=== PATIENT | male | born 1945 | race Caucasian/White ===

== ENCOUNTER 2016-03-20 12:49 | Emergency (ER) | payer MEDICARE, OTHER ==
[2016-03-20] MEDS ORDERED: SODIUM CHLORIDE 0.9% 500 ML ONE (13:20)
[2016-03-20 13:28] LABS: ABSOLUTE NEUTROPHIL COUNT 5.2 K/mm3 (1.8-7.7); BASO % 0.4 % (0.2-1.0); EOS # 0.1 (0.0-0.5); EOS % 0.8 % (0.9-2.9); HEMATOCRIT 39.6 % (32.0-52.0); HEMOGLOBIN 12.9 gm/l (14.0-18.0); IMM NEUT% 0.3 % (0-1); LYMPH # 1.2 (1.0-4.8); LYMPH % 16.6 % (15-45); MEAN CELL VOLUME 91.9 fl (80.0-94.0); MEAN CORPUSCULAR HEMOGLOBIN 29.9 pg (27.0-31.0); MEAN CORPUSCULAR HGB CONC 32.6 g/dl (33.0-37.0); MEAN PLATELET VOLUME 10.6 fl (7.4-10.4); MONO # 0.6 (0.0-0.8); MONO % 8.8 % (4-12); NEUT % 73.1 % (43-75); PLATELET COUNT 255 K/mm3 (130-400); RED CELL DISTRIBUTION WIDTH 12.3 % (11.5-14.5)
[2016-03-20 13:38] LABS: ALB/GLOB RATIO 1.3 (>1.0); ALBUMIN 3.9 gm/dL (3.5-5.7); CALCIUM 9.2 mg/dL (8.6-10.3)
[2016-03-20 14:07] LABS: SPECIFIC GRAVITY 1.015 (1.001-1.030); URINE BILIRUBIN NEGATIVE (NEGATIVE); URINE BLOOD TRACE (NEGATIVE); URINE GLUCOSE (UA) NEGATIVE (NEGATIVE); URINE LEUKOCYTE ESTERASE 1+ (NEGATIVE); URINE NITRITE NEGATIVE (NEGATIVE); URINE PROTEIN NEGATIVE (NEGATIVE); URINE UROBILINOGEN NORMAL (0-1 mg/dl)
[2016-03-20 14:22] LABS: URINE APPEARANCE HAZY; URINE COLOR YELLOW
[2016-03-20 14:35] LABS: URINE RBC 0-1 /hpf
[2016-03-20 14:36] LABS: URINE BACTERIA 2+; URINE EPITHELIAL CELLS 0-1 /hpf; URINE WBC 20-30 /hpf
== END 2016-03-20 14:46 | disposition home or self-care (01) ==
LOC: ED 12:49
DX: I95.1 Orthostatic hypotension (principal); R53.1 Weakness; G20 Parkinson's disease
CPT/HCPCS: 85025; 82550; 87086; 80053; 87186; 84484; 81001; 87077; 99284; 96360; 93005; 99283; J7040

== ENCOUNTER 2016-03-31 05:09 | Inpatient (IN) | payer MEDICARE, OTHER ==
[2016-03-31] MEDS ORDERED: FENTANYL 100 MCG/2 ML VIAL ONE (05:29)
[2016-03-31 06:04] LABS: ABSOLUTE NEUTROPHIL COUNT 9.1 K/mm3 (1.8-7.7); BASO % 0.2 % (0.2-1.0); EOS % 0.4 % (0.9-2.9); HEMATOCRIT 35.2 % (32.0-52.0); HEMOGLOBIN 11.6 gm/l (14.0-18.0); IMM NEUT% 0.4 % (0-1); LYMPH # 1.2 (1.0-4.8); LYMPH % 10.9 % (15-45); MEAN CELL VOLUME 90.7 fl (80.0-94.0); MEAN CORPUSCULAR HEMOGLOBIN 29.9 pg (27.0-31.0); MEAN PLATELET VOLUME 10.9 fl (7.4-10.4); MONO # 0.8 (0.0-0.8); MONO % 7.1 % (4-12); PLATELET COUNT 207 K/mm3 (130-400); RED CELL DISTRIBUTION WIDTH 12.3 % (11.5-14.5)
[2016-03-31 06:19] LABS: ALB/GLOB RATIO 1.3 (>1.0); ALBUMIN 3.4 gm/dL (3.5-5.7); BLOOD UREA NITROGEN 20 mg/dL (7-25); BUN/CREATININE RATIO 22 (6-20); CALCIUM 8.7 mg/dL (8.6-10.3); GLOMERULAR FILTRATION RATE 83 mL/min (60-75); MAGNESIUM 1.8 mg/dL (1.9-2.7)
[2016-03-31] MEDS ORDERED: HYDROMORPHONE HCL 0.5 MG/0.5 ML SYRINGE ONE ×2 (06:20→07:16)
[2016-03-31 06:25] LABS: ALT/SGPT < 5 U/L (7-52)
[2016-03-31] MEDS ORDERED: LIDOCAINE 2% UROJECT 10 ML ONE (07:17)
[2016-03-31] MEDS ORDERED: BLISTEX LIPSTICK 1 EACH TP PRN (08:16)
[2016-03-31] MEDS ORDERED: MENTHOL/CETYLPYRD 1 EACH LOZENGE PO PRN (08:16)
[2016-03-31] MEDS ORDERED: BISACODYL 5 MG TABLET.EC PO PRN (08:16)
[2016-03-31] MEDS ORDERED: MAGNESIUM HYDROXIDE 30 ML UDCUP PO PRN (08:16)
[2016-03-31] MEDS ORDERED: BISACODYL 10 MG SUP PR PRN (08:16)
[2016-03-31] MEDS ORDERED: ACETAMINOPHEN 325 MG TABLET PO PRN (08:16)
[2016-03-31] MEDS ORDERED: SODIUM CHLORIDE 0.9% 100 ML IV PRN (08:16)
[2016-03-31 08:20] VITALS: BMI 23.1
[2016-03-31] MEDS ORDERED: ONDANSETRON 4 MG/2ML 2 ML VIAL IV PRN (08:20)
[2016-03-31] MEDS ORDERED: PUMP TUBING ONE (08:39)
[2016-03-31] MEDS: LACTATED RINGERS 1,000 ML IV SCH ×2 (08:41→18:08)
[2016-03-31] MEDS: CIPROFLOXACIN IV 400 MG 400 MG in Premix (D5W) 200 ml 1 EACH IV SCH ×2 (08:57→20:45)
[2016-03-31] MEDS: HYDROMORPHONE HCL 2 MG/ML SYRINGE IV PRN ×3 (09:07→16:57)
[2016-03-31] MEDS ORDERED: MAGNESIUM SULFATE 2 G/50 ML 2 G in Premix (Water) 50 ml 1 EACH IV ONE (10:30)
[2016-03-31] MEDS: DOCUSATE SODIUM 100 MG CAPSULE PO SCH ×2 (11:05→21:36)
--- NOTE | 2016-03-31 11:12 | CONS ---
ANA MARIE [id number] DATE OF : 1945 DATE OF SERVICE: 03/31/2016 HISTORY OF PRESENT ILLNESS: The patient is a 71-year-old gentleman who presented to the emergency department this morning after a fall onto his left hip. He had pain and difficulty with weightbearing. He was brought to the emergency department. X-rays were obtained of the left hip which were concerning for intratrochanteric fracture. He was admitted by the Hospitalist and orthopedics was consulted. On evaluation, today he complains of pain that localizes to his left groin crease and bilateral side of his left hip. He has had previous falls on this side with similar complaints evaluated a less than a year ago. He states that he was not having any antecedent hip pain. He is a community ambulator with occasional use of assisted devices secondary to his Parkinson disease. He is not certain if he had pain in the hip before he fell, and he is not certain which side he landed on. He just remembers being at the sink to get a glass of water early this morning and then finding himself on the floor with pain in his left hip. He has no other extremity complaints at this time. He does have the significant motion restriction secondary to his Parkinson. He is currently comfortable. PAST MEDICAL HISTORY: Per the Hospitalist service, most notably: 1. Parkinson disease. 2. Major depression. 3. Hearing loss. 4. Chronic constipation. 5. Some degree of congestive heart failure. 6. Anxiety adjustment disorder. 7. Some mild anemia. 8. Panic disorder. 9. Agoraphobia. 10. Abdominal aortic aneurysm. PAST SURGICAL HISTORY: Includes: 1. Appendectomy. 2. He has had no previous procedures on this joint. ALLERGIES: PER THE HOSPITALIST HISTORY AND PHYSICAL: CURRENT MEDICATIONS: Per the Hospitalist history and physical. PHYSICAL EXAM: GENERAL: This is a well-developed, well-nourished male in no acute distress. He is awake, alert, and conversant throughout the encounter. He is seen lying in bed on the [facility]. HEENT: Normocephalic and atraumatic. His extraocular movements appear to be intact. NECK: Soft and supple. LUNGS: His lungs appear clear. HEART: His heart has a regular rate and rhythm. ABDOMEN: Soft. FOCUSED MUSCULOSKELETAL EXAM OF HIS LEFT LOWER EXTREMITY: He has pain with any motion, but this true of both lower extremities. He has tenderness on palpation of the lateral side of his left hip in the region of the greater trochanter, as well as some mild tenderness in his groin crease and back around to his buttocks. He has pain with any attempt at log roll. His motion is very limited secondary to pain. He has intact sensation, and well perfused foot. He 5/5 strength in ankle, dorsiflexion, and plantar flexion. He has no open injuries. DIAGNOSTIC IMAGING: A review of his x-rays from this morning show a various deformity at the proximal femur, but here appears to be significant re-mottling and it is difficult to determine acuity of this deformity. He has essentially almost a Baird's crook type proximal femoral geometry. There is not a clear displaced fracture that I can visualize on these images. review of previous images from a year ago shows significantly different geometry without the same various deformity, and without significant bony callous that is currently present in the piriformis fossa. ASSESSMENT: A 71-year-old male with a fall presumably onto his left side, pain in his left hip and a change in his proximal femoral geometry compared to previous images which is suspicious for femoral neck versus introchanteric fracture of a non-acuity. PLAN: Will be for a CT scan to further evaluate the geometry of his proximal femur and determine whether there is an acute fracture, or a partially re-mottled fracture. We will withhold plans for surgery until we have a better idea of what is going on here. In the meantime, we will manage his pain control, and we will keep him non-weightbearing. I will allow him to eat today and if he does indeed have a displaced fracture that requires surgery, it probably will be sliding hip screw which we plan to do sometime tomorrow. DANIELLA/noris
--- NOTE | 2016-03-31 11:20 | RAD ---
HIP - LEFT 2 VW + AP PELVIS COMPARISON: Pelvis and left hip, 04/21/2015 HISTORY: The patient fell and now has left hip pain. FINDINGS: Views: AP pelvis. Left hip AP and frog-leg. Bones: Mildly angulated intertrochanteric fracture of the left femur. In the right iliac bone, 13.6 mm sclerotic lesion, unchanged since 04/21/2015 Joints: Degenerative changes in left hip. Soft tissues: Normal. IMPRESSION: 1. Mildly angulated intertrochanteric fracture left femur. 2. No change in osteoarthritis of the left hip. 3. No change in bone island of the right iliac bone.
--- NOTE | 2016-03-31 11:21 | RAD ---
CHEST-AP BEDSIDE COMPARISON: Chest 2 views, 11/24/2015 HISTORY: Ground-level fall. Left hip pain. Left hip fracture. Preop chest x-ray. FINDINGS: Views: Frontal chest. Lungs: Normal. Heart and vessels: Normal Trachea and bronchi: Normal Mediastinum and lavelle: Normal Costophrenic sulci: Normal Chest wall and bones: Normal Upper abdomen: Normal. IMPRESSION: Negative one view chest.
--- NOTE | 2016-03-31 11:24 | CT ---
PELVIS W/O CON COMPARISON: Pelvis and left hip radiographs, 03/31/2016 HISTORY: Preoperative evaluation. Intertrochanteric fracture of the left femur. Technique: Using a [employer] Aquilion [address] scanner, images were obtained from the iliac crests to the floor the pelvis. No intravenous contrast. An automated dose reduction technique was used to minimize patient radiation dose. Dose: CTDIvol (mGy): 6.90 DLP(mGycm): 299.30 FINDINGS: Pelvic viscera: Atherosclerosis of the abdominal aorta and the iliac arteries. Mora catheter in the bladder. No hematoma. Abdominal wall and supporting musculature: Normal Bones: Mildly medially impacted intertrochanteric fracture of the left femur. Bone island of the right ilium. Bone island of the left ilium near the sacroiliac joint. Joints: Osteoarthritis of the left hip. Normal symphysis pubis. Normal sacroiliac joints. IMPRESSION: 1. Mildly medially impacted intertrochanteric fracture of the left femur, without hematoma.
[2016-03-31] MEDS: DULOXETINE HCL 30 MG CAPSULE.DR PO SCH (12:33)
[2016-03-31] MEDS: CARBIDOPA/LEVODOPA 25/100 1 EACH TABLET PO SCH ×3 (12:34→18:08)
[2016-03-31] MEDS: FAMOTIDINE 20 MG TABLET PO SCH ×2 (12:34→20:39)
[2016-03-31] MEDS: POLYETHYLENE GLYCOL 3350 17 G POWD.SUSP PO SCH ×2 (12:34→21:36)
[2016-03-31] MEDS: ENTACAPONE 200 MG TABLET PO SCH ×4 (13:40→20:40)
[2016-03-31] MEDS: MIDODRINE HCL 5 MG TABLET PO SCH (16:57)
--- NOTE | 2016-03-31 17:02 | HP ---
ANA MARIE [id number] DATE OF ADMISSION: 03/31/2016 CHIEF COMPLAINT: Left hip pain. HISTORY OF PRESENT ILLNESS: Patient is a 71-year-old male with a patient medical history significant for advanced Parkinson disease brought to the [facility] Emergency Department after a fall which occurred at home at ground level. Patient reports he was getting up to get a glass of water and fell, and was unable to get up on his own. He was on the floor for about 2 hours before he was able to get attention, and assistance. He was brought to the [facility] Emergency Department for further evaluation where he was found to have an intratrochanteric impacted hip fracture. He was referred to the Hospitalist service for admission. Dr. Mckeon with the orthopedic service was consulted. 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 REVIEW OF SYSTEMS: Negative for any recent fevers, or chills. He denies any recent upper respiratory symptoms, cough, dyspnea, wheezing, chest pain, shortness of breath, or palpitations. He denies nausea, vomiting, or abdominal pain. He has had some diarrhea since he started on the antibiotic. He normally has chronic constipation. He complains of left hip pain, but denies any other arthralgias. He denies headaches, fainting, blackouts, or seizures. He has had no urinary complaints. He is not sure exactly how he felt. PAST MEDICAL HISTORY: Is significant for: 1. Fairly advanced Parkinson disease followed by Dr. Colten Ramirez at the [facility]. He has recently been having some medication adjustment for orthostatic hypotension felt to be a side effect of his medications. Treated with Midodrine. 2. He has a history of chronic depression with anxiety. 3. He reports he believes he was hospitalized about 8 months ago up in [place], but I do not have any record of this, and he does not recall what that may have been for. 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. 4. He has a history of benign prostatic hypertrophy followed by Dr. Shabbir Miller. 5. He denies any history of coronary artery disease, or any chronic lung disease. 6. He has had a small aneurysm of the abdominal aorta measuring 3 cm which has been stable, last checked in October of 2015. 7. He may be recalling hospitalization here in our hospital in November of 2015 where he was monitored overnight for weakness. His problem lists a history of myocardial infarction and congestive heart failure; however, review of his records in [employer] including his old medical records and in a discussion with the patient there is no evidence of this, and it is unclear where this information came from, or if it is true. The patient seemed like a reliable historian. He shows no electrocardiogram changes that would indicate prior coronary artery disease. PAST SURGICAL HISTORY: Is significant for a prior: 1. Colonoscopy. 2. Appendectomy. 3. History of gallstones. 4. Upper endoscopy of 2015 showing mild gastritis otherwise normal findings. 5. Colonoscopy in January of 2015 with a sessile polyp removed by snare cautery. ALLERGIES: DOCUMENTED TO LINZESS WHICH CAUSED CHEST PAIN. CURRENT MEDICATIONS: As obtained from his electronic health record in the clinic shows: 1. Flomax 0.4 mg by mouth at bedtime. 2. Miralax normally is taking 17 g twice daily. He is holding the medicine due to his antibiotic associated diarrhea. 3. Midodrine 5 mg twice daily at 9 a.m. and 3 p.m. 4. Pepcid 40 mg twice daily. 5. Comtan 5 times a day at 0600, 0900, 1200, 1500, 1800, and 2100. 6. Sinemet 25/100 at 0600, 0900, 1200, 1500, and 1800. He takes 25/200 at bedtime. 7. Klonopin 0.25 mg twice daily as needed for anxiety. 8. Colace has been taken in the past, but is no longer being taken by the patient. 9. Cymbalta 30 mg daily. FAMILY HISTORY: Family history is significant for a great-grandmother with Parkinson disease on his father's side. He has a sister with breast cancer. SOCIAL HISTORY: He has about a 20-pack year history of smoking. He quit 10 years ago. He rarely drinks alcohol. He is . He has no children. His primary care provider is Tyrone Knapp family nurse practitioner. PHYSICAL EXAMINATION: VITAL SIGNS: Temperature is 97.7. Pulse is 88. Blood pressure is 137/84. Respirations are 18. Oxygen saturation is 94% on room air. Body mass index is 23.2. Weight is 75.4 kilograms. GENERAL: This is a well-developed, well-nourished male in no acute distress. HEENT: Exam is unremarkable. NECK: Supple without lymphadenopathy, or thyromegaly. CHEST: Lungs are clear to auscultation bilaterally. CARDIOVASCULAR: Exam reveals a regular rate and rhythm without a murmur. ABDOMEN: Soft, nontender, nondistended with positive bowel sounds. GENITOURINARY: Exam shows a urethral catheter in place, no lesions. EXTREMITIES: Lower extremities shows some shortening of the left leg. No peripheral edema. Dorsalis pedis pulses are 2+ in both feet. SKIN: Warm, dry and intact. DIAGNOSTIC IMAGING: X-ray shows a possible intratrochanteric impacted fracture of the left femur. CT is planned to further evaluate this. Chest x-ray shows a hypoventilatory exam, but no acute abnormalities. LABORATORY STUDIES: CBC shows a white count 11.2, hemoglobin 11.6, and platelet count of 207,000. Chemistry profile shows sodium 138, potassium 3.3, carbon dioxide of 27, BUN 20, creatinine 0.9, and glucose 110. Liver function tests are normal. Magnesium is slightly low at 1.8. Troponin is less than 0.01. A 12-lead electrocardiogram shows sinus rhythm nonspecific T-wave abnormality. ASSESSMENT AND PLAN: Patient has a possible intratrochanteric left femur fracture with left hip pain. He has Parkinson disease chronic and severe. History of orthostatic hypotension secondary to his Parkinson medications treated with midodrine, some chronic depression with anxiety stable on medications. He was admitted to the medical surgical unit. I am going to make him nothing by mouth. He will be given hydration with lactated ringers. For pain, he will get Dilaudid and Zofran as needed for nausea. We will review his films and discuss his plan of care with Dr. Domenico Mckeon the orthopedic surgeon. Further treatment and recommendations will depend on his hospital course. Venous thrombosis risk is moderate, but due to plans for upcoming surgery mechanical measures will be used for venous thromboembolism prophylaxis. Job #: [id number] JESSICA/noris
[2016-03-31] MEDS ORDERED: ENTACAPONE 200 MG TABLET PO SCH (18:00)
[2016-03-31] MEDS: LEVODOPA PO SCH (20:39)
[2016-03-31] MEDS: TAMSULOSIN HCL 0.4 MG CAPSULE.DR PO SCH (20:39)
[2016-03-31] MEDS: CARBIDOPA PO SCH (20:39)
[2016-03-31] MEDS: HYDROMORPHONE HCL 1 MG/ML SYRINGE IV PRN (20:44)
[2016-04-01] MEDS: LACTATED RINGERS 1,000 ML IV SCH ×3 (02:00→17:46)
[2016-04-01] MEDS: HYDROMORPHONE HCL 1 MG/ML SYRINGE IV PRN ×5 (02:00→13:20)
[2016-04-01] MEDS: CARBIDOPA/LEVODOPA 25/100 1 EACH TABLET PO SCH ×5 (05:47→18:04)
[2016-04-01] MEDS: ENTACAPONE 200 MG TABLET PO SCH ×6 (05:47→21:34)
[2016-04-01 06:16] LABS: ABSOLUTE NEUTROPHIL COUNT 4.1 K/mm3 (1.8-7.7); BASO % 0.3 % (0.2-1.0); EOS # 0.1 (0.0-0.5); EOS % 2.2 % (0.9-2.9); HEMATOCRIT 30.8 % (32.0-52.0); IMM NEUT% 0.3 % (0-1); LYMPH # 1.4 (1.0-4.8); LYMPH % 21.7 % (15-45); MEAN CELL VOLUME 92.5 fl (80.0-94.0); MEAN CORPUSCULAR HGB CONC 32.5 g/dl (33.0-37.0); MEAN PLATELET VOLUME 10.2 fl (7.4-10.4); MONO # 0.8 (0.0-0.8); MONO % 12.7 % (4-12); NEUT % 62.8 % (43-75); PLATELET COUNT 168 K/mm3 (130-400); RED CELL DISTRIBUTION WIDTH 12.3 % (11.5-14.5)
[2016-04-01 06:33] LABS: CALCIUM 8.2 mg/dL (8.6-10.3)
[2016-04-01] MEDS: CIPROFLOXACIN IV 400 MG 400 MG in Premix (D5W) 200 ml 1 EACH IV SCH (09:02)
[2016-04-01] MEDS: MIDODRINE HCL 5 MG TABLET PO SCH ×2 (09:02→17:46)
[2016-04-01] MEDS: FAMOTIDINE 20 MG TABLET PO SCH ×2 (09:04→22:46)
[2016-04-01] MEDS: DULOXETINE HCL 30 MG CAPSULE.DR PO SCH (12:56)
[2016-04-01] MEDS: DOCUSATE SODIUM 100 MG CAPSULE PO SCH ×2 (12:56→21:35)
[2016-04-01] MEDS: POLYETHYLENE GLYCOL 3350 17 G POWD.SUSP PO SCH ×2 (12:59→21:35)
--- NOTE | 2016-04-01 14:27 | PDOC43 ---
- Subjective Chief Complaint: left hip pain Subjective: Reports Pain Tolerable, Denies Fever - Objective Vital Signs Temperature 98.2 F 04/01/16 13:29 Pulse Rate 79 04/01/16 13:29 Respiratory Rate 18 04/01/16 14:00 Blood Pressure 128/66 04/01/16 13:29 O2 Saturation by Pulse Oximetry 93 04/01/16 13:29 Oxygen Delivery Method Room Air Oxygen Flow Rate 0 Intake and Output 03/31/16 04/01/16 04/02/16 06:59 06:59 06:59 Intake Total 2752 Output Total 1350 Balance 1402 General: Alert, Oriented x3, Cooperative, No Acute Distress HEENT: Mucous membr. moist/pink Lungs: Clear to Auscultation Bilaterally Cardiovascular: Regular Rate and Rhythm Abdomen: Soft, Normal Bowel Sounds, Non-Distended, No Tenderness Extremities: Other (pain over proximal femur), No Edema Peripheral Pulses: Dorsalis Pedis (L): 2+, Dorsalis Pedis (R): 2+ Skin: Warm, Dry, Intact Laboratory 04/01/16 05:30 04/01/16 05:30 04/01/16 05:30 RBC 3.33 L MCHC 32.5 L Anion Gap 7 L Estimated GFR 83 H Calcium 8.2 L Current Medications: Current meds reviewed in EMR. - Problems: Assessment/Plan (1) Intertrochanteric fracture of left femur Qualifiers: Encounter type: initial encounter Fracture type: closed Qualifier Code: (S72.142A) Displaced intertrochanteric fracture of left femur, initial encounter for closed fracture Status: AcuteAssessment/Plan: anticipate ORIF this afternoon with Dr Mckeon (2) Parkinson's disease Status: ChronicAssessment/Plan: advanced, but stable on meds, no swallowing dysfunction (3) Orthostatic hypotension Status: AcuteAssessment/Plan: secondary to Parkinson's treatment with some improvement on Midodrine-movie actor (4) Depression with anxiety Status: AcuteAssessment/Plan: stable on meds VTE Prophylaxis: IPCs Disposition: TBD
[2016-04-01] MEDS ORDERED: SPINAL PROCEDURAL TRAY 1 EACH ONE (16:30)
[2016-04-01] MEDS ORDERED: BUPIVACAINE 0.75% SPINAL AMPUL 2 ML ONE (16:30)
[2016-04-01] MEDS ORDERED: MIDAZOLAM HCL 1 MG/ML 2ML VIAL ONE ×2 (16:36→17:16)
[2016-04-01] MEDS ORDERED: FENTANYL 100 MCG/2 ML VIAL ONE ×2 (16:45→18:53)
[2016-04-01] MEDS ORDERED: BUPIVACAINE 0.5% (PRES FREE) 30 ML VIAL ONE (16:47)
[2016-04-01] MEDS ORDERED: CEFAZOLIN SODIUM 1,000 MG VIAL ONE (17:41)
[2016-04-01] MEDS ORDERED: PROPOFOL 20 ML IV ONE (17:43)
[2016-04-01] MEDS ORDERED: ONDANSETRON 4 MG/2ML 2 ML VIAL IV PRN (17:58)
[2016-04-01] MEDS ORDERED: ATROPINE SULFATE 0.4 MG/1 ML VIAL IV PRN (17:58)
[2016-04-01] MEDS ORDERED: NALOXONE HCL 0.4 MG/ML VIAL IV PRN (17:58)
[2016-04-01] MEDS ORDERED: FENTANYL 100 MCG/2 ML VIAL IV PRN (17:58)
[2016-04-01] MEDS ORDERED: LACTATED RINGERS 1,000 ML IV SCH (18:00)
--- NOTE | 2016-04-01 18:20 | PCMBPN ---
Brief Post Op Note: Date of Procedure: 04/01/16 Start Time: 1730 Preoperative Diagnosis: 1. left intertrochanteric fracture Postoperative Diagnosis: 1. Same Procedure: left hip ORIF Surgeon: Domenico Mckeon MD Assist: Jada Castro Anesthesia: Quique Mckeon Findings: as above Condition: stable to PACU Complications: none IV Fluids: 500 mLs of LR Urine Output: 100 mLs Estimated Blood Loss: 50 mLs Tourniquet Time: none Specimens: none Implants: 4-hole 140 deg DHS plate with 95 mm head screw, compression screw, 4 cortical screws Drains: none Domenico Mckeon MD
[2016-04-01] MEDS ORDERED: ONDANSETRON 4 MG/2ML 2 ML VIAL ONE (19:14)
[2016-04-01] MEDS ORDERED: LABETALOL HCL 5 MG/ML 20ML VIAL IV ONE (19:19)
[2016-04-01] MEDS ORDERED: LABETALOL HCL 5 MG/ML 20ML VIAL IV PRN (19:19)
--- NOTE | 2016-04-01 20:08 | RAD ---
Exam: Two-view left hip COMPARISON: Intraoperative exam 04/01/2016 and 03/31/2016 INDICATION: Postop. FINDINGS: Portable AP and crosstable lateral views of left hip were obtained. Postsurgical changes are identified within the left hip, for treatment of the intertrochanteric femur fracture. Fracture fragments are in near-anatomic alignment. IMPRESSION: Expected postoperative appearance following ORIF for the intertrochanteric left femur fracture.
--- NOTE | 2016-04-01 20:18 | RAD ---
Exam: Two-view left hip COMPARISON: Radiographs 03/31/2016 INDICATION: Postop left hip.. Dynamic screw placement. Findings: Fluoroscopy was provided for Dr. Mckeon. 48.5 seconds of fluoroscopy time was utilized. Radiologist was not present for the exam. 3 static images were submitted for interpretation. These images demonstrate a dynamic hip screw within the proximal left femur. Fracture fragment are in near-anatomic alignment. This examination is otherwise limited for interpretation. IMPRESSION: Fluoroscopy was provided for Dr. Mckeon for dynamic hip screw placement in the left femur.
[2016-04-01] MEDS: CARBIDOPA PO SCH (21:34)
[2016-04-01] MEDS: TAMSULOSIN HCL 0.4 MG CAPSULE.DR PO SCH (21:34)
[2016-04-01] MEDS: LEVODOPA PO SCH (21:34)
[2016-04-01] MEDS: CLONAZEPAM 0.5 MG TABLET PO PRN (21:35)
[2016-04-01] MEDS ORDERED: IV START KIT ONE (21:42)
[2016-04-01] MEDS ORDERED: SODIUM CHLORIDE 0.9% FLUSH 10 ML ONE ×2 (21:42→21:52)
[2016-04-02] MEDS: CIPROFLOXACIN IV 400 MG 400 MG in Premix (D5W) 200 ml 1 EACH IV SCH ×2 (00:38→09:25)
[2016-04-02] MEDS: HYDROMORPHONE HCL 1 MG/ML SYRINGE IV PRN ×2 (00:45→12:07)
[2016-04-02] MEDS: LACTATED RINGERS 1,000 ML IV SCH ×3 (01:32→11:39)
[2016-04-02] MEDS: OXYCODONE/ACETAMINOPHEN 5/325 MG TABLET PO PRN ×3 (04:40→15:27)
[2016-04-02] MEDS: CARBIDOPA/LEVODOPA 25/100 1 EACH TABLET PO SCH ×5 (05:38→18:22)
[2016-04-02] MEDS: ENTACAPONE 200 MG TABLET PO SCH ×6 (05:39→21:29)
--- NOTE | 2016-04-02 08:18 | PDOC43 ---
- Subjective Findings: Doing well this AM, pain controlled no new issues. Subjective: Reports Flatus, Reports Pain Tolerable, Denies Chest Pain, Denies Shortness of Breath, Denies Nausea, Denies Vomiting, Denies Fever - Objective Vital Signs Temperature 98.3 F 04/02/16 07:38 Pulse Rate 93 04/02/16 07:38 Respiratory Rate 18 04/02/16 07:38 Blood Pressure 120/65 04/02/16 07:38 O2 Saturation by Pulse Oximetry 96 04/02/16 07:38 Oxygen Delivery Method Nasal Cannula Oxygen Flow Rate 2 Laboratory 04/01/16 05:30 04/01/16 05:30 Active Medication Orders Category Date Time Status Acetaminophen [Tylenol] Med 03/31/16 08:16 Active 650 mg PO Q6H PRN Bisacodyl [Dulcolax] Med 03/31/16 08:16 Active 10 mg [place] DAILY PRN Bisacodyl [Dulcolax] Med 03/31/16 08:16 Active 5 mg PO DAILY PRN Carbidopa/Levodopa 25/100 [Sinemet 25/100] Med 03/31/16 12:00 Active 1 each PO 0600,0900,1200 Carbidopa/Levodopa 25/100 [Sinemet 25/100] Med 03/31/16 15:00 Active 1 each PO 1500,1800 Carbidopa/Levodopa Cr 25/100 [Sinemet Cr 25/100] Med 03/31/16 21:00 Active 2 each PO BEDTIME Ciprofloxacin IV 400 mg [Cipro IV 400 mg] 400 mg Med 03/31/16 09:00 Active Premix (D5W) 200 ml 1 each IV Q12HR Clonazepam [Klonopin] Med 03/31/16 11:50 Active 0.25 mg PO BID PRN Docusate Sodium [Colace] Med 03/31/16 09:00 Active 100 mg PO BID Duloxetine HCl [Cymbalta] Med 03/31/16 12:00 Active 30 mg PO DAILY Entacapone [Comtan *Non Formulary*] Med 03/31/16 15:40 Active 100 mg PO 0600,0900,1200,1500 Entacapone [Comtan *Non Formulary*] Med 03/31/16 18:00 Active 100 mg PO 1800,2100 Famotidine [Pepcid] Med 03/31/16 12:00 Active 40 mg PO BID Hydromorphone HCl [Dilaudid] Med 03/31/16 08:20 Active 0.5 - 2 mg IV Q2H PRN Hydromorphone HCl [Dilaudid] Med 03/31/16 20:32 Active 0.5 - 2 mg IV Q2H PRN Labetalol HCl [Trandate] Med 04/01/16 19:19 Active 5 mg IV Q5M PRN Lactated Ringers 1,000 ml Med 03/31/16 08:30 Active IV 125 mls/hr Lip Clyde [Blistex] Med 03/31/16 08:16 Active 1 each TP PRN PRN Magnesium Hydroxide [Milk of Magnesia] Med 03/31/16 08:16 Active 30 ml PO DAILY PRN Menthol/Cetylpyridinium [Cepacol] Med 03/31/16 08:16 Active 1 each PO PRN PRN Midodrine HCl [Proamatine] Med 03/31/16 15:00 Active 5 mg PO 0900,1500 Ondansetron 4 mg/2ml Vial [Zofran] Med 03/31/16 08:20 Active 4 mg IV Q4H PRN Oxycodone HCl/Acetaminophen [Percocet 5/325] Med 04/01/16 18:17 Active 2 tab PO Q6H PRN Polyethylene Glycol 3350 [Miralax] Med 03/31/16 12:00 Active 17 g PO BID Sodium Chloride 0.9% 100 ml Med 03/31/16 08:16 Active IV PRN Sodium Chloride 0.9% Flush [Normal Saline 10ml Flush] Med 03/31/16 08:16 Active 10 - 50 ml IV PRN PRN Sodium Chloride 0.9% Flush [Normal Saline 10ml Flush] Med 04/01/16 09:00 Active 10 ml IV Q8HR Tamsulosin HCl [Flomax] Med 03/31/16 21:00 Active 0.4 mg PO BEDTIME Intake and Output 03/31/16 04/01/16 04/02/16 23:59 23:59 23:59 Intake Total 846 3426 932 Output Total 450 2650 900 Balance 396 776 32 General: Afebrile, No Acute Distress HEENT: EOMI Lungs: Normal Air Movement Abdomen: Soft Skin: Normal Color, Warm, Dry Neurological: Alert, Oriented x 4 - Left Lower Extremity Incision: Dressing Clean/Dry/Intact, Well Approximated, [place] Intact, No Drainage Motor: Extensor Hallucis Longus: 5/5, Tibialis Anterior: 5/5, Gastrocnemius: 5/5 , Peroneals: 5/5, Quadriceps: 5/5 Gross Sensation to Light Touch: Present: Deep Peroneal Nerve, Superficial Peroneal Nerve, Medial Plantar Nerve, Lateral Plantar Nerve, Sural Nerve, Saphenous Nerve Capillary Refill: < 3 Seconds - Problems (1) Intertrochanteric fracture of left femur Qualifiers: Encounter type: initial encounter Fracture type: closed Qualifier Code: (S72.142A) Displaced intertrochanteric fracture of left femur, initial encounter for closed fracture Status: AcuteAssessment/Plan: POD#1 L hip ORIF 1. Physical Therapy: up with PT, WBAT, assistive device at all times. 2. Pain Control: Percocet/Dilaudid (adequate) 3. DVT Prophylaxis: per hospitalist 4. Disposition: likely 1-2 days for rehab then SNF vs home, pending PT/OT eval for rehab needs and potential 5. Medical Issues: per hospitalist Domenico Mckeon MD
[2016-04-02] MEDS: MIDODRINE HCL 5 MG TABLET PO SCH ×2 (09:26→15:28)
[2016-04-02] MEDS: DULOXETINE HCL 30 MG CAPSULE.DR PO SCH (09:26)
[2016-04-02] MEDS: FAMOTIDINE 20 MG TABLET PO SCH ×2 (09:26→21:30)
[2016-04-02] MEDS: DOCUSATE SODIUM 100 MG CAPSULE PO SCH ×3 (11:38→22:53)
[2016-04-02] MEDS: POLYETHYLENE GLYCOL 3350 17 G POWD.SUSP PO SCH ×3 (11:39→22:53)
[2016-04-02] MEDS: CLONAZEPAM 0.5 MG TABLET PO PRN ×2 (12:07→21:30)
--- NOTE | 2016-04-02 13:29 | PDOC43 ---
- Subjective Chief Complaint: left hip pain Subjective: Reports Pain Tolerable, Reports Tolerating Diet Well, Reports Other (very anxious), Denies Fever - Objective Vital Signs Temperature 98.8 F 04/02/16 12:45 Pulse Rate 82 04/02/16 12:45 Respiratory Rate 15 04/02/16 12:45 Blood Pressure 105/60 04/02/16 12:45 O2 Saturation by Pulse Oximetry 94 04/02/16 12:45 Oxygen Delivery Method Room Air Oxygen Flow Rate 0 Intake and Output 04/01/16 04/02/16 04/03/16 06:59 06:59 06:59 Intake Total 2752 2452 Output Total 1350 2650 Balance 1402 -198 General: Alert, Oriented x3, Cooperative, Other (anxious) HEENT: Mucous membr. moist/pink Lungs: Clear to Auscultation Bilaterally Cardiovascular: Regular Rate and Rhythm Abdomen: Soft, Normal Bowel Sounds, Non-Distended, No Tenderness Extremities: No Edema Skin: Warm, Dry, Intact Wound: Dressing Clean/Dry/Intact Laboratory 04/01/16 05:30 04/01/16 05:30 Current Medications: Current meds reviewed in EMR. 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
[2016-04-02] MEDS: CARBIDOPA PO SCH (21:29)
[2016-04-02] MEDS: CIPROFLOXACIN 500 MG TABLET PO SCH (21:29)
[2016-04-02] MEDS: TAMSULOSIN HCL 0.4 MG CAPSULE.DR PO SCH (21:29)
[2016-04-02] MEDS: LEVODOPA PO SCH (21:29)
[2016-04-03] MEDS: ENTACAPONE 200 MG TABLET PO SCH ×4 (06:16→14:48)
[2016-04-03] MEDS: CARBIDOPA/LEVODOPA 25/100 1 EACH TABLET PO SCH ×4 (06:17→14:48)
[2016-04-03 06:55] LABS: ABSOLUTE NEUTROPHIL COUNT 5.7 K/mm3 (1.8-7.7); BASO % 0.1 % (0.2-1.0); EOS # 0.2 (0.0-0.5); EOS % 2.7 % (0.9-2.9); HEMATOCRIT 28.7 % (32.0-52.0); HEMOGLOBIN 9.6 gm/l (14.0-18.0); IMM NEUT # 0.1 K/mm3 (0-0.2); IMM NEUT% 0.6 % (0-1); LYMPH % 12.4 % (15-45); MEAN CELL VOLUME 89.4 fl (80.0-94.0); MEAN CORPUSCULAR HEMOGLOBIN 29.9 pg (27.0-31.0); MEAN CORPUSCULAR HGB CONC 33.4 g/dl (33.0-37.0); MEAN PLATELET VOLUME 10.6 fl (7.4-10.4); MONO # 0.9 (0.0-0.8); MONO % 11.1 % (4-12); NEUT % 73.1 % (43-75); PLATELET COUNT 151 K/mm3 (130-400); RED CELL DISTRIBUTION WIDTH 12.3 % (11.5-14.5)
[2016-04-03] MEDS: OXYCODONE/ACETAMINOPHEN 5/325 MG TABLET PO PRN ×3 (07:08→14:47)
[2016-04-03 07:18] LABS: CALCIUM 8.2 mg/dL (8.6-10.3)
--- NOTE | 2016-04-03 07:32 | PDOC43 ---
- Subjective Findings: POD2 after Left ORIF Hip Fx. Subjective: Reports Pain Tolerable - Objective Vital Signs Temperature 97.6 F 04/03/16 07:04 Pulse Rate 91 04/03/16 07:04 Respiratory Rate 17 04/03/16 07:04 Blood Pressure 154/79 04/03/16 07:04 O2 Saturation by Pulse Oximetry 91 04/03/16 07:04 Oxygen Delivery Method Nasal Cannula Oxygen Flow Rate 2 Laboratory 04/03/16 06:05 04/03/16 06:05 04/03/16 06:05 RBC 3.21 L Estimated GFR 83 H Calcium 8.2 L Active Medication Orders Category Date Time Status Acetaminophen [Tylenol] Med 03/31/16 08:16 Active 650 mg PO Q6H PRN Bisacodyl [Dulcolax] Med 03/31/16 08:16 Active 10 mg [place] DAILY PRN Bisacodyl [Dulcolax] Med 03/31/16 08:16 Active 5 mg PO DAILY PRN Carbidopa/Levodopa 25/100 [Sinemet 25/100] Med 03/31/16 12:00 Active 1 each PO 0600,0900,1200 Carbidopa/Levodopa 25/100 [Sinemet 25/100] Med 03/31/16 15:00 Active 1 each PO 1500,1800 Carbidopa/Levodopa Cr 25/100 [Sinemet Cr 25/100] Med 03/31/16 21:00 Active 2 each PO BEDTIME Ciprofloxacin [Cipro] Med 04/02/16 21:00 Active 500 mg PO BID Clonazepam [Klonopin] Med 03/31/16 11:50 Active 0.25 mg PO BID PRN Docusate Sodium [Colace] Med 03/31/16 09:00 Active 100 mg PO BID Duloxetine HCl [Cymbalta] Med 03/31/16 12:00 Active 30 mg PO DAILY Entacapone [Comtan *Non Formulary*] Med 03/31/16 15:40 Active 100 mg PO 0600,0900,1200,1500 Entacapone [Comtan *Non Formulary*] Med 03/31/16 18:00 Active 100 mg PO 1800,2100 Famotidine [Pepcid] Med 03/31/16 12:00 Active 40 mg PO BID Hydromorphone HCl [Dilaudid] Med 03/31/16 08:20 Active 0.5 - 2 mg IV Q2H PRN Hydromorphone HCl [Dilaudid] Med 03/31/16 20:32 Active 0.5 - 2 mg IV Q2H PRN Lip [place] [Blistex] Med 03/31/16 08:16 Active 1 each TP PRN PRN Magnesium Hydroxide [Milk of Magnesia] Med 03/31/16 08:16 Active 30 ml PO DAILY PRN Menthol/Cetylpyridinium [Cepacol] Med 03/31/16 08:16 Active 1 each PO PRN PRN Midodrine HCl [Proamatine] Med 03/31/16 15:00 Active 5 mg PO 0900,1500 Ondansetron 4 mg/2ml Vial [Zofran] Med 03/31/16 08:20 Active 4 mg IV Q4H PRN Oxycodone HCl/Acetaminophen [Percocet 5/325] Med 04/01/16 18:17 Active 2 tab PO Q6H PRN Polyethylene Glycol 3350 [Miralax] Med 03/31/16 12:00 Active 17 g PO BID Sodium Chloride 0.9% 100 ml Med 03/31/16 08:16 Active IV PRN Sodium Chloride 0.9% Flush [Normal Saline 10ml Flush] Med 03/31/16 08:16 Active 10 - 50 ml IV PRN PRN Sodium Chloride 0.9% Flush [Normal Saline 10ml Flush] Med 04/01/16 09:00 Active 10 ml IV Q8HR Tamsulosin HCl [Flomax] Med 03/31/16 21:00 Active 0.4 mg PO BEDTIME Intake and Output 04/01/16 04/02/16 04/03/16 23:59 23:59 23:59 Intake Total 3426 2152 350 Output Total 2650 2800 425 Balance 757 -589 -70 General: Afebrile Lungs: Normal Air Movement Skin: Normal Color, Warm, Dry - Left Lower Extremity Incision: Dressing Clean/Dry/Intact, Well Approximated, Ignacio Intact, No Drainage, No Erythema, No Rash Motor: Extensor Hallucis Longus: 5/5, Tibialis Anterior: 5/5, Gastrocnemius: 4/5 , Peroneals: 4/5 Gross Sensation to Light Touch: Present: Deep Peroneal Nerve, Superficial Peroneal Nerve - Problems (1) Intertrochanteric fracture of left femur Qualifiers: Encounter type: initial encounter Fracture type: closed Qualifier Code: (S72.142A) Displaced intertrochanteric fracture of left femur, initial encounter for closed fracture Status: AcuteAssessment/Plan: POD#1 L hip ORIF 1. Physical Therapy: up with PT, WBAT, assistive device at all times. 2. Pain Control: Percocet/Dilaudid (adequate) 3. DVT Prophylaxis: per hospitalist 4. Disposition: likely 1-2 days for rehab then SNF vs home, pending PT/OT eval for rehab needs and potential 5. Medical Issues: per hospitalist Domenico Mckeon MD - Additional Comments POD2 Left Hip ORIF, Intertrochanteric fx. 1. Physical Therapy: Up with PT, WBAT with FWW, Mobilize and get out of bed at least twice a day. 2. Pain Control: Multimodal pain control as needed. Convert to Percocet primarily. 3. DVT Prophylaxis: mobilization, ASA 325mg daily x 1-month postop. 4. Disposition: Ok with Ortho to Plan for transfer to SNF today. 5. Medical Issues: Urinary infection on Cipro, Parkinsons, H/o of back pains. Hospitalist involved in non-ortho care.
[2016-04-03] MEDS ORDERED: ASPIRIN (ENTERIC COATED) 325 MG TABLET.EC PO SCH (09:00)
[2016-04-03] MEDS: DOCUSATE SODIUM 100 MG CAPSULE PO SCH (09:05)
[2016-04-03] MEDS: CIPROFLOXACIN 500 MG TABLET PO SCH (09:05)
[2016-04-03] MEDS: DULOXETINE HCL 30 MG CAPSULE.DR PO SCH (09:06)
[2016-04-03] MEDS: POLYETHYLENE GLYCOL 3350 17 G POWD.SUSP PO SCH (09:07)
[2016-04-03] MEDS: FAMOTIDINE 20 MG TABLET PO SCH (09:07)
[2016-04-03] MEDS: MIDODRINE HCL 5 MG TABLET PO SCH ×2 (09:08→14:48)
[2016-04-03 11:19] VITALS: BP 118/69
--- NOTE | 2016-04-03 18:20 | PDOC5 ---
ADMIT DATE: 03/31/16 DISCHARGE DATE: 04/03/16 ADMISSION DIAGNOSES: L intertrochanteric femur fracture Discharge Diagnoses: L intertrochanteric femur fracture Parkinson's Disease Depression with anxiety BPH PROCEDURES PERFORMED THIS HOSPITALIZATION: L femur ORIF CONSULTATIONS: Orthopedics HOSPITAL COURSE: This is a 71 year old male who sustained a ground level fall resulting in a left femur fracture. He underwent ORIF. on04/01/2016. He had post-operative blood loss with a dip in his hemoglobin to 9.6. He remained asymptomatic. His electrolyte disturbances, hypokalemia and hypomagnesia were replaced without incident. Pain was controlled and he worked with therapy. He is being discharged to [facility] for ongoing rehabilitation. - Exam Vital Signs Temperature 97.6 F 04/03/16 07:04 Pulse Rate 91 04/03/16 07:04 Respiratory Rate 17 04/03/16 07:04 Blood Pressure 154/79 04/03/16 07:04 O2 Saturation by Pulse Oximetry 91 04/03/16 07:04 Oxygen Delivery Method Nasal Cannula Oxygen Flow Rate 2 General: Alert, Oriented x3, Cooperative, No Acute Distress HEENT: Atraumatic, Mucous membr. moist/pink, Other (slight masked face) Lungs: Clear to Auscultation Bilaterally, Diminished at Bases Cardiovascular: Regular Rate and Rhythm, Normal S1, Normal S2 Abdomen: Soft, Mild Distention, No Rigid, No Tenderness, No Rebounding Extremities: No Cyanosis, No Edema, No Tenderness Peripheral Pulses: Radial (L): 2+, Radial (R): 2+ Neurological: Normal Speech, Other (slight UE bradykinesia) Psych/Mental Status: Normal Mood - Results Laboratory 04/03/16 06:05 04/03/16 06:05 04/03/16 06:05 RBC 3.21 L Estimated GFR 83 H Calcium 8.2 L Imaging Results: L Hip x-ray: mildly angulated intertrochanteric fracture L femur. No change in OA L hip. No change in bone island of R iliac bone CXR: Negative 1-view CT Pelvis: mildly medially impacted intertrochanteric fracture L femur without hematoma - Problems:Assessment/Plan (1) Intertrochanteric fracture of left femur Qualifiers: Encounter type: initial encounter Fracture type: closed Qualifier Code: (S72.142A) Displaced intertrochanteric fracture of left femur, initial encounter for closed fracture Status: AcuteAssessment/Plan: S/P ORIF on 04/[address] Mckeon- appreciate ortho care Doing well with therapy. (2) Acute blood loss anemia Status: AcuteAssessment/Plan: mild, will follow (3) Depression with anxiety Status: ChronicAssessment/Plan: on meds with PRN benzos although patient is reluctant to take (4) Weakness Status: AcuteAssessment/Plan: multifactorial including Parkinsons, recent femur fracture (5) Parkinson's disease Status: ChronicAssessment/Plan: advanced, but stable on meds, no swallowing dysfunction-portfolio manager (6) Anemia Qualifiers: Anemia type: iron deficiency Iron deficiency anemia type: inadequate dietary iron intake Qualifier Code: (D50.8) Other iron deficiency anemias Status: ChronicAssessment/Plan: chronic, exacerbated by recent surgical blood loss, dilutional effects (7) CAD (coronary artery disease) Qualifiers: Coronary Disease-Associated Artery/Lesion type: kaibab artery [place] vs. transplanted heart: kaibab heart Status: ChronicAssessment/Plan: stable (8) Orthostatic hypotension Status: ChronicAssessment/Plan: secondary to Parkinson's treatment with some improvement on Midodrine-portfolio manager (9) CHF (congestive heart failure) Qualifiers: Congestive heart failure type: unspecified congestive heart failure type Congestive heart failure chronicity: chronic Qualifier Code: (I50.9) Heart failure, unspecified Status: ChronicAssessment/Plan: stable (10) UTI (urinary tract infection), bacterial Status: ResolvedAssessment/Plan: found on urine culture 03/20 and resolved full course, 10 days of ciprofloxacin - Disposition: Disposition: TBD - Discharge Plan Instruction Forms: Heart Failure Prescriptions: RX: Clonazepam [CLONAZEPAM 0.5 MG TABLET (SHF)] 0.25 mg PO BID PRN #30 tablet PRN Reason: Anxiety RX: Docusate Sodium [COLACE 100 MG CAPSULE (SHF)] 100 mg PO BID #60 capsule RX: Oxycodone HCl/Acetaminophen [PERCOCET 5/325 MG TABLET (SHF)] 2 tab PO Q6H PRN #40 tablet PRN Reason: Pain Follow-Up: Diaz Knapp FNP [Primary Care Provider] - 04/10/16 2:30 pm Yakov Garcia PA [Physician Aquatic Instructor] - 04/16/16 9:00 am Condition: Stable Disposition: [facility]
--- NOTE | 2016-04-04 12:44 | OP ---
Anshul MARIE : 05/06/1957 [id number] DATE OF SERVICE: April 03, 2016 PREOPERATIVE DIAGNOSIS: Left intertrochanteric hip fracture. POSTOPERATIVE DIAGNOSIS: Left intertrochanteric hip fracture. PROCEDURE PERFORMED: LEFT HIP OPEN REDUCTION INTERNAL FIXATION. SURGEON: Domenico Mckeon M.D. SALES ORDER SPECIALIST: Levi Frost ANESTHESIA: Quique Tapia C.R.N.A. ESTIMATED BLOOD LOSS: 50 mL URINE OUTPUT: 100 mL FLUIDS REPLACED: 500 mL of crystalloid. SPECIMENS: No material was sent to the laboratory. TOURNIQUET TIME: No tourniquet was utilized. DRAINS: None. IMPANTS: Was a 4 hole 140 degree DHS plate with 95 mm head screw, a compression screw and four cortical screws in the shaft. INDICATIONS: This is a 71-year-old gentleman who presented to the emergency department on the morning of surgery after a fall onto his left hip. He had pain and difficulty with weight-bearing. Emergency room evaluation demonstrated concern for nondisplaced intertrochanteric fracture. A CT was obtained which did not demonstrate any hematoma around the fracture but did show a clear fracture plane. Orthopedics was consulted after the patient was admitted by the hospitalist service. On evaluation by orthopedics his physical exam was suggestive of a proximal humerus fracture but his imaging potentially suggested several previous nondisplaced fractures with some remodeling over time. In any case he was unable to bear weight and had a clear fracture plane on his CT scan and so in order to restore his ability to bear weight we recommended an open reduction internal fixation with a sliding hip screw. Risks, benefits and alternatives were discussed with the patient and he elected to proceed. Informed consent is obtained and documented in the chart and he was scheduled for surgery in an expedient fashion. DESCRIPTION OF PROCEDURE: The patient was identified in the pre-operative holding area and marked with an indelible marker by the operating surgeon. He was taken to the operating room where he was placed in supine position on the operating room table. General anesthesia was induced. Preoperative antibiotics were administered. He was prepped and draped in the usual sterile fashion for surgery. An operative time out was performed and confirmed by all members of the operative team. Using intraoperative fluoroscopy we localized our location for our incision and then made a longitudinal incision on the lateral thigh. Dissection was carried through to the lateral fascia of the thigh down to the proximal femur. As this was a nondisplaced fracture no fracture table was utilized and no traction was required. The guide pin for the cephalomedullary screw was inserted to the appropriate position, reamed over, the depth gauge was utilized and a 95 mm screw was placed into a position with a tip apex distance of less than 2 cm on both views. The four hole 140 degree plate was selected and slid over the screw and opposed down to the proximal shaft of the femur. With this held up to the femur four cortical screws were placed into the plate securing it to the femur and then a locking screw was placed into the plate locking the head screw in place preventing it from sliding back from the plate and applying compression across the fracture. The wound was copiously irrigated with sterile saline. The lateral fascia was closed with #0 Vicryl, subcutaneous tissues with #2-0 Vicryl and skin with all. A sterile dressing of Xeroform, fluffs, ABD and Medipore tape was applied. The drapes were removed. The patient was awakened from his anesthesia, extubated in the operating room and transferred to a stretcher and taken postoperatively to the postanesthesia care unit in stable condition. There were no observed intraoperative complications during this procedure. Job [id number] Cc: [facility]
== END 2016-04-03 13:15 | DRG 482 ==
LOC: ED 05:09 → MS 07:16
PROVIDERS: ADMIT Family Medicine; ATTEND Family Medicine
PROC: 0QS704Z Reposition Left Upper Femur with Internal Fixation Device, Open Approach (ICD-10-PCS; principal; 2016-04-03)
DX: S72.142A Displaced intertrochanteric fracture of left femur, initial encounter for closed fracture (principal); W19.XXXA Unspecified fall, initial encounter; G20 Parkinson's disease; F32.9 Major depressive disorder, single episode, unspecified; K59.09 Other constipation; F41.1 Generalized anxiety disorder; F41.0 Panic disorder [episodic paroxysmal anxiety]; I95.1 Orthostatic hypotension; N40.0 Benign prostatic hyperplasia without lower urinary tract symptoms; I25.10 Atherosclerotic heart disease of native coronary artery without angina pectoris; I25.2 Old myocardial infarction